=== PATIENT | male | born 1970 | race Caucasian/White ===

== ENCOUNTER 2017-10-10 21:19 | Emergency (ER) | payer OTHER ==
--- NOTE | 2017-10-10 21:38 | RADIOLOGY REPORT (SQ) ---
EXAM DESCRIPTION: CT HEAD WITHOUT COMPLETED DATE/TIME: 10/10/2017 9:27 pm REASON FOR STUDY: stroke alert COMPARISON: None. TECHNIQUE: Axial images acquired through the brain without intravenous contrast. Images reviewed wi th bone, brain and subdural windows. Images stored on PACS. All CT scanners at this facility use dose modulation, iterative reconstruction, and/or weight based d osing when appropriate to reduce radiation dose to as low as reasonably achievable (ALARA). [facility]: Dose Right [facility]: CareDose [facility]: Dose Right [facility]: Teradose 4D [facility]: Alex and Ani RADIATION DOSE: mGy. LIMITATIONS: None. FINDINGS: VENTRICLES: Normal size and contour. CEREBRUM: No masses. No hemorrhage. No midline shift. No evidence for acute infarction. Normal gra y/white matter differentiation. No areas of low density in the white matter. CEREBELLUM: No masses. No hemorrhage. No alteration of density. No evidence for acute infarction. 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 No acute fluid col lections. No masses. ORBITS AND GLOBE: No intra- or extraconal masses. Normal contour of globe without masses. CALVARIUM: No fracture. PARANASAL SINUSES: No fluid or mucosal thickening. SOFT TISSUES: No mass or hematoma. OTHER: No other significant finding. IMPRESSION: NORMAL BRAIN CT WITHOUT CONTRAST. EVIDENCE OF ACUTE STROKE: NO. COMMENT: Pertinent positive or negative findings of the imaging study reported as a CRITICAL EXAM dez GARCIA MD at21:31 on 10/10/2017. Category of Critical Exam: Stroke protocol Quality ID # [id number]: Final reports with documentation of one or more dose reduction techniques (e.g., Au tomated exposure control, adjustment of the mA and/or kV according to patient size, use of iterative reconstruction technique) TECHNICAL DOCUMENTATION: JOB ID: [id number] [employer]- All Rights Reserved
--- NOTE | 2017-10-10 21:38 | RADIOLOGY REPORT (SQ) ---
EXAM DESCRIPTION: CHEST SINGLE VIEW COMPLETED DATE/TIME: 10/10/2017 9:30 pm REASON FOR STUDY: stroke alert COMPARISON: None. EXAM PARAMETERS: NUMBER OF VIEWS: One view. TECHNIQUE: Single frontal radiographic view of the chest acquired. RADIATION DOSE: NA LIMITATIONS: None. FINDINGS: LUNGS AND PLEURA: No opacities, masses or pneumothorax. No pleural effusion. MEDIASTINUM AND HILAR STRUCTURES: No masses. Contour normal. HEART AND VASCULAR STRUCTURES: Heart normal in size. Normal vasculature. BONES: No acute findings. HARDWARE: None in the chest. OTHER: No other significant finding. IMPRESSION: NO ACUTE RADIOGRAPHIC FINDING IN THE CHEST. TECHNICAL DOCUMENTATION: JOB ID: [id number] [employer]- All Rights Reserved
[2017-10-10 22:03] LABS: ABSOLUTE EOSINOPHILS # (AUTO) 0.1 10^3/uL (0.0-0.6); ABSOLUTE LYMPHOCYTES (AUTO) 4.2 10^3/uL (0.5-4.7); ABSOLUTE MONOCYTES (AUTO) 0.6 10^3/uL (0.1-1.4); ABSOLUTE NEUT (AUTO) 3.5 10^3/uL (1.7-8.2); BASOPHILS % (AUTO) 0.4 % (0-2); EOSINOPHILS % (AUTO) 1.3 % (0-6); HEMOGLOBIN 15.7 g/dL (13.5-17.0); HGB HCT DIFFERENCE 2.1; LYMPHOCYTES % (AUTO) 50.1 % (13-45); MEAN CORPUSCULAR HEMOGLOBIN 31.9 pg (27.0-33.4); MEAN CORPUSCULAR VOLUME 91 fl (80-97); MONOCYTES % (AUTO) 6.5 % (3-13); RED BLOOD COUNT 4.94 10^6/uL (4.35-5.55); RED CELL DISTRIBUTION WIDTH 13.3 % (11.5-14.0); SEGMENTED NEUTROPHILS % (AUTO) 41.7 % (42-78); WHITE BLOOD COUNT 8.5 10^3/uL (4.0-10.5)
[2017-10-10 22:05] LABS: PROTHROMBIN TIME 12.9 SEC (11.4-15.4)
[2017-10-10 22:06] LABS: PARTIAL THROMBOPLASTIN TIME 27.3 SEC (23.5-35.8)
[2017-10-10 22:07] LABS: ALANINE AMINOTRANSFERASE 36 U/L (21-72); ALKALINE PHOSPHATASE 94 U/L (38-126); ANION GAP 14 (5-19); ASPARTATE AMINO TRANSFERASE 32 U/L (17-59); BILIRUBIN,DIRECT 0.5 mg/dL (0.0-0.4); BILIRUBIN,TOTAL 0.8 mg/dL (0.2-1.3); BLOOD UREA NITROGEN 13 mg/dL (7-20); CALCIUM 10.3 mg/dL (8.4-10.2); CARBON DIOXIDE 28 mmol/L (22-30); CHLORIDE 103 mmol/L (98-107); CREATINE KINASE 344 U/L (55-170); CREATININE RESULT 0.85 mg/dL (0.52-1.25); GLUCOSE 102 mg/dL (75-110); SODIUM 144.7 mmol/L (137-145); TOTAL PROTEIN 7.6 g/dL (6.3-8.2)
[2017-10-10] MEDS ORDERED: ACETAMINOPHEN 325 MG TABLET PO ONE (22:08)
[2017-10-10 22:46] LABS: TROPONIN I < 0.012 ng/mL
[2017-10-10] MEDS ORDERED: NORMAL SALINE 1000 ML 1,000 ML IV PRN (23:23)
[2017-10-11] MEDS ORDERED: KETOROLAC TROMETHAMINE INJ/PF 30 MG/1 ML SDV IV ONE (00:53)
--- NOTE | 2017-10-11 00:58 | ER Document Report ---
ED General - General Chief Complaint: S/S of Possible Stroke Stated Complaint: POSSIBLE STROKE Time Seen by Provider: 10/10/17 22:07 Mode of Arrival: Wheelchair Information source: Patient Notes: This is a 47-year-old man who presents to the emergency room with concerns for possible stroke. Patient states that he started feeling anxious, having jitteriness and started having a headache of gradual onset. He states his symptoms started at approximately 5:30 PM. He stated that he had difficult time concentrating and his stated that he appeared confused and he had a glazed look on his eyes. Patient denies any focal motor weakness. He denies any slurred speech. TRAVEL OUTSIDE OF THE [place] IN LAST 30 DAYS: No - HPI Onset: Just prior to arrival Onset/Duration: Gradual Quality of pain: No pain Severity: None Pain Level: Denies Associated symptoms: Chest pain, Fever, Shortness of breath Exacerbated by: Denies Relieved by: Denies Similar symptoms previously: Yes Recently seen / treated by doctor: Yes - Related Data Allergies/Adverse Reactions: No Known Allergies Allergy (Unverified 10/10/17 23:27) Past Medical History - General Information source: Patient, Relative - Social History Smoking Status: Current Every Day Smoker Chew tobacco use (# tins/day): No Frequency of alcohol use: Rare Drug Abuse: None Lives with: Family Family History: Reviewed & Not Pertinent Patient has suicidal ideation: No Patient has homicidal ideation: No - Medical History Medical History: Other - Cataplexy - Past Medical History Cardiac Medical History: Reports: Hx Hypertension Renal/ Medical History: Denies: Hx Peritoneal Dialysis Surgical Hx: Negative Review of Systems - Review of Systems Constitutional: denies: Chills, Fever EENT: No symptoms reported Cardiovascular: No symptoms reported Respiratory: No symptoms reported Gastrointestinal: No symptoms reported Genitourinary: No symptoms reported Male Genitourinary: No symptoms reported Musculoskeletal: No symptoms reported Skin: No symptoms reported Hematologic/Lymphatic: No symptoms reported Neurological/Psychological: See HPI Physical Exam - Vital signs Vitals: Pulse Ox 100 10/10/17 21:21 Notes: Physical exam: GENERAL: 47-year-old man, alert and oriented 3, appears anxious HEAD: Atraumatic, normocephalic. EYES: Pupils equal round and reactive to light, extraocular movements intact, sclera anicteric, conjunctiva are normal. ENT: TMs normal, nares patent, oropharynx clear without exudates. Moist mucous membranes. NECK: Normal range of motion, supple without obvious mass or JVD. LUNGS: Breath sounds clear to auscultation bilaterally and equal. No wheezes rales or rhonchi. HEART: Regular rate and rhythm without murmurs, rubs or gallops. ABDOMEN: Soft, normoactive bowel sounds. No tenderness to palpation. No guarding, no rebound. No masses appreciated. EXTREMITIES: Normal range of motion, no pitting or edema. No clubbing or cyanosis. NEUROLOGICAL: Patient is alert and keenly responsive, is able to answer the age and month correctly, he is able to perform commands, his horizontal gaze is normal. Visual gee are intact, there is no evidence of facial palsy, there is no motor arm drift, no motor leg drift, cerebellar (finger to nose) is good, sensory is intact, patient is good a picture description, names all objects and his sentence reading is good, there is no dysarthria, there is no extinction. Patient's NIH score is 0 PSYCH: Normal mood, normal affect. SKIN: Warm, Dry, normal turgor, no rashes or lesions noted. Course - Re-evaluation Re-evalutation: 10/11/17 01:28 I have had a long discussion with the patient. 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 Whether this has anything to do with his headaches and recent difficulty with memory is unclear. He does have an appointment with a neurologist on Thursday. There are plans for an outpatient MRI as well. After going over all the symptoms, less inclined to think that this is a TIA. He has been experiencing difficulty finding words and has had headaches gradually getting worse over the past several weeks. This is why he went to his PCP and asked for an outpatient head CT. He has been very anxious since being told that there was a "cyst on his brain". After reviewing the CT with Dr. Lafleur of radiology here, he thinks that this finding is a normal variant. In any event, the patient does not want to come into the hospital (I did offer observation with an MRI in the morning and workup), but he is resistant to coming to the hospital. Given that he has good follow-up with a neurologist this week, I think it safe for him to get a workup as an outpatient. 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 - EKG Interpretation by Me Rhythm: NSR - EKG shows normal sinus rhythm with a bundle type branch block Critical Care Note - Critical Care Note Total time excluding time spent on procedures (mins): 60 Discharge - Discharge Clinical Impression: Headache Condition: Stable Disposition: HOME, SELF-CARE Additional Instructions: Recommendations: Take the Ativan when stressed. Do not take it when operating machinery or driving. Do not drink alcohol and take the medicine at the same time Follow-up with the neurologist as planned. A copy of today's labs and CT report with you when you go for that evaluation Return to the emergency room for any concerns about weakness, numbness, or any concerns she may be getting worse. Prescriptions: Lorazepam [Ativan 0.5 mg Tablet] 0.5 mg PO Q8HP PRN #30 tab PRN Reason:
[2017-10-11 02:07] VITALS: BP 130/85
--- NOTE | 2017-10-11 09:13 | EKG REPORT ---
SEVERITY:- ABNORMAL ECG - SINUS RHYTHM PROBABLE LEFT VENTRICULAR HYPERTROPHY : Confirmed by: Alden Calhoun MD 11-Oct-2017 09:13:12
== END 2017-10-11 02:17 | disposition home or self-care (01) ==
LOC: ER 21:19
DX: R51 Headache (principal); R29.818 Other symptoms and signs involving the nervous system; F41.9 Anxiety disorder, unspecified; I10 Essential (primary) hypertension; I45.4 Nonspecific intraventricular block; F17.200 Nicotine dependence, unspecified, uncomplicated
CPT/HCPCS: 93005; 99291; 96361; 96374; 36415; 82553; 82550; 85025; 85610; 85730; 80053; 84484; 71010; 70450; 93010; J1885; J7030